=== PATIENT | female | born 1985 | race Caucasian/White ===

== ENCOUNTER 2022-08-26 06:52 | Observation (INO) ==
[2022-08-26 07:01] VITALS: BMI 45.6
--- NOTE | 2022-08-26 07:32 | DR.CP ---
HPI Time Seen Time Seen by Provider: 08/26/22 07:29 PCP Primary Care Physician: JUSTIN SUAREZ HPI Comment HPI Comment: Pt. is a 36 y/o female presenting with c/o recurrent, sharp and pressure type chest pain since last night. There is no radiation, palpitations or diaphoresis. The pain feels better when she vomits but there is no exacerbating factor. Aside from this present discomfort, this pain occurred last week . At its worst, the pain was an 8 out 10, now it is rated as a 4. Complaint Chief Complaint:: PT STATES SHE STARTED HAVING CHEST PAIN AROUND 9PM LAST NIGHT AND HAS GOTTEN BETTER AND WORSE THROUGH THE NIGHT. THIS MORNING PAIN IS 5/10. PT STATES SHE HAS HX OF GERD; PT IS CRYING ON ARRIVAL TO TRIAGE. PT STATES "WHEN IT GETS REALLY BAD I HAVE SHORTNESS OF BREATH". PT STATES SHE FEELS BETTER AFTER SHE THROWS UP, BUT THEN PAIN RETURNS. PT DENIES HEADACHE. PT DESCRIBES PAIN EPIGASTRIC, MIDSTERNAL, "FEELS LIKE I HAVE SOMETHING SITTING ON MY CHEST" Self Treatment fo Chief Complaint: PEPCID, ANTACIDS THIS MORNING NO TYLENOL, MOTRIN COVID-19 Coronavirus risk:travel/contact w/high risk person: No Has patient experienced Coronavirus symptoms: No Reviewed Nurses Notes Review: Yes Source History Provided: Patient Mode of Arrival Mode of Arrival: Ambulatory Timing Onset of Chief Complaint: 08/25/22 Came on: Gradually Pain: Present Now Duration Duration: Intermittent Location Location of Chest Pain: Chest Chest Pain Radiation Location: None Context Onset: At rest Cardiac Risk Factors: Diabetes PE Risk Factors: None History of: None Prehospital Care: None and ASA Quality Quality: Sharp and Pressure like Severity Severity: Moderate Modifying Factors Worsens: Nothing Impoves: Nothing Associated Signs and Symptoms Associated Signs and Symptoms: None PMH PMH Past Medical History: Yes Past Medical History: Anemia, Diabetes and GERD Past Medical History Comment: PCOS Past Surgical History: Yes 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 Past Surgical History Comment: FIBROIDS REMOVED Family History History of Family Medical Conditions: Yes Family Medical History: Hypertension Social History Does any household member use tobacco: No Alcohol Use: None Do you use any recreational Drugs:: No Lives With: Spouse and Family Lives Where: Home Travel Risk Coronavirus risk:travel/contact w/high risk person: No Has patient experienced Coronavirus symptoms: No Infectious screening In the last 2 months have you had wt loss of >10#?: NO Have you had fever, night sweats or hemotysis?: No Have you traveled outside the country in the last 6 months?: No Isolation: Standard ROS Review of Systems Constitutional: No Symptoms Reported Eyes: No Symptoms Reported ENTM: No Symptoms Reported Respiratoy: No Symptoms Reported Cardiovascular: Chest Pain Gastrointestinal/Abdominal: No Symptoms Reported Genitourinary: No Symptoms Reported Neurological: No Symptoms Reported Musculoskeletal: No Symptoms Reported Integumentary: No Symptoms Reported Hematologic/Lymphatic: No Symptoms Reported Endocrine: No Symptoms Reported Psychiatric: No Symptoms Reported All Other Systems: Reviewed and Negative PE Vitals Vitals: Temperature 97.5 F Pulse Rate 74 Respiratory Rate 18 Blood Pressure 143/85 O2 Sat by Pulse Oximetry 100 General Limitations: No Limitations General Appearance: Alert, In No Apparent Distress and Obese Head Head Exam: Normal Inspection, Atraumatic and Normocephalic Eyes Eye exam: Normal Appearance and EOMI ENT ENT Exam: Normal Exam, Normal Oropharynx, Normal External Ear Exam and Mucous Membranes Moist Chest Chest Inspection: Normal Inspection and Symmetric Chest Wall Rise Respiratory Respiratory Exam: Normal Lung Sounds Bilat Cardiovascular Cardiovascular Exam: Regular Rate, Normal Rhythm, Normal Heart Sounds, +S1 and +S2 Pulse: Normal Edema: Normal Abdominal Exam Abdominal Exam: Normal Inspection, Normal Bowel Sounds and Soft Extremities Extremities Exam: Normal Inspection and Full ROM Back Back Exam: Normal Inspection and Full ROM Neurologic Neurological Exam: Alert and Oriented X3 Psychiatric Psychiatric Exam: Normal Affect and Normal Mood Skin Skin Exam: Dry, Intact and Normal Color COURSE Treatment Treatment: Her care was endorsed over to incoming Dr. Wick ROR Labs Reviewed Result Diagrams: 08/27/22 06:05 08/27/22 06:05 Laboratory: WBC 4.7 X10^3/uL (3.6-10.0) 08/26/22 07:44 RBC 4.11 X10^6/uL (3.5-5.4) 08/26/22 07:44 Hgb 12.7 g/dL (12.0-16.0) 08/26/22 07:44 Hct 35.6 % (36.0-47.0) L 08/26/22 07:44 MCV 86.8 fL (80.0-100.0) 08/26/22 07:44 MCH 31.0 pg (27.0-34.0) 08/26/22 07:44 MCHC 35.7 g/dL (33.0-35.0) H 08/26/22 07:44 RDW 12.7 % (11.6-16.5) 08/26/22 07:44 Plt Count 274 X10^3/uL (150.0-450.0) 08/26/22 07:44 MPV 8.3 fL (7.4-11.0) 08/26/22 07:44 Neut % (Auto) 71.5 % (42.0-75.0) 08/26/22 07:44 Lymph % (Auto) 18.5 % (21.0-51.0) L 08/26/22 07:44 Stephens % (Auto) 9.4 % (0.0-13.0) 08/26/22 07:44 Eos % (Auto) 0.1 % (0.9-2.9) L 08/26/22 07:44 Baso % (Auto) 0.5 % (0.2-1.0) 08/26/22 07:44 Neut # (Auto) 3.4 x10^3/uL (2.2-4.8) 08/26/22 07:44 Lymph # (Auto) 0.9 X10^3/uL (1.3-2.9) L 08/26/22 07:44 Stephens # (Auto) 0.4 x10^3/uL (0.3-0.8) 08/26/22 07:44 Eos # (Auto) 0.0 x10^3/uL (0.0-0.2) 08/26/22 07:44 Baso # (Auto) 0.0 X10^3/uL (0.0-0.1) 08/26/22 07:44 Absolute Nucleated RBC 0.0 /100WBC 08/26/22 07:44 PT 14.3 SECONDS (11.8-14.3) 08/26/22 07:44 INR Target Range - 08/26/22 07:44 INR 1.15 (0.8-1.3) 08/26/22 07:44 APTT 27.2 SECONDS (22.9-36.5) 08/26/22 07:44 PTT Comment - 10/24/22 07:44 Sodium 137 mmol/L (136-145) 08/26/22 07:44 Corrected Sodium 137 mmol/L (136-145) 08/26/22 07:44 Potassium 4.0 mmol/L (3.5-5.1) 08/26/22 07:44 Chloride 104 mmol/L (98-107) 08/26/22 07:44 Carbon Dioxide 28.2 mmol/L (21-32) 08/26/22 07:44 BUN 12 mg/dL (7-18) 08/26/22 07:44 Creatinine 0.76 mg/dL (0.55-1.02) 08/26/22 07:44 Est GFR (MDRD) Af Amer > 60 (>60) 08/26/22 07:44 Est GFR (MDRD) Non-Af > 60 (>60) 08/26/22 07:44 Glucose 117 mg/dL (65-99) H 08/26/22 07:44 Calcium 8.5 mg/dL (8.5-10.1) 08/26/22 07:44 Corrected Calcium TNP 08/26/22 07:44 Magnesium 1.6 mg/dL (2.0-2.9) L 08/26/22 07:44 Total Bilirubin 1.10 mg/dL (0.2-1.0) H 08/26/22 07:44 AST 500 Units/L (15-37) H 08/26/22 07:44 ALT 418 Units/L (12-78) H 08/26/22 07:44 Alkaline Phosphatase 84 Units/L (46-116) 08/26/22 07:44 Creatine Kinase 79 Units/L (26-192) 08/26/22 07:44 Troponin I High Sens 4.2 ng/L (4.0-60.0) 08/26/22 07:44 Total Protein 7.2 g/dL (6.4-8.2) 08/26/22 07:44 Albumin 3.7 g/dL (3.4-5.0) 08/26/22 07:44 Globulin 3.5 g/dL (2.5-4.5) 08/26/22 07:44 Albumin/Globulin Ratio 1.1 Ratio (1.1-2.1) 08/26/22 07:44 HCG, Qual Negative <10 mIU/mL 08/26/22 07:44 Specimen Type Clean catch urine 08/26/22 08:30 Urine Color Yellow (YELLOW) 08/26/22 08:30 Urine Appearance Clear (CLEAR) 08/26/22 08:30 Urine pH 6.0 (5.0 - 8.0) 08/26/22 08:30 Ur Specific Delong 1.010 (1.000-1.030) 08/26/22 08:30 Urine Protein 1+ (NEGATIVE) 08/26/22 08:30 Urine Glucose (UA) Negative (NEGATIVE) 08/26/22 08:30 Urine Ketones Negative (NEGATIVE) 08/26/22 08:30 Urine Blood Negative (NEGATIVE) 08/26/22 08:30 Urine Nitrite Negative (NEGATIVE) 08/26/22 08:30 Urine Bilirubin Negative (NEGATIVE) 08/26/22 08:30 Urine Urobilinogen Normal (NORMAL) 08/26/22 08:30 Ur Leukocyte Esterase Negative (NEGATIVE) 08/26/22 08:30 Urine RBC None seen /HPF (0-3) 08/26/22 08:30 Urine WBC None seen /HPF (0-5) 08/26/22 08:30 Ur Squamous Epith Cells Few /HPF (NEGATIVE) 08/26/22 08:30 Other Crystals Few /HPF (NEGATIVE) 08/26/22 08:30 Amorphous Sediment Trace /HPF (NEGATIVE) 08/26/22 08:30 Urine Bacteria Trace /HPF (NEGATIVE) 08/26/22 08:30 Ur Culture Indicated? No/not indicated 08/26/22 08:30 Tissue Pathology To follow 08/26/22 12:25 Opioid Opioid Risk Tool Age ([place] box if 16-45): Yes History of Preadolescent Sexual Abuse: No Total: 1 Total Score Risk Category: Low Risk Copyright: Rodrigue WELCH predicting aberrant behaviors Discharge Plan Diagnosis Discharge Problem: Chest pain Discharge Plan Patient Disposition: 09 ADMITTED INPATIENT Condition: Stable Orders to Discharge Patient Discharge Orders: Discharge (Routine); Ordered 08/27/22 Ordered By: PERLA YODER
[2022-08-26] MEDS ORDERED: PROTONIX TAB 40 MG PO ONE ×2 (07:35→07:42)
[2022-08-26] MEDS ORDERED: PROTONIX INJ 40 MG VIAL IVP ONE (07:43)
[2022-08-26] MEDS ORDERED: PROTONIX INJ 40 MG VIAL ONE (07:43)
[2022-08-26 07:56] LABS: BASOPHILS % (AUTO) 0.5 % (0.2-1.0); EOSINOPHILS % (AUTO) 0.1 % (0.9-2.9); HEMATOCRIT 35.6 % (36.0-47.0); HEMOGLOBIN 12.7 g/dL (12.0-16.0); LYMPHOCYTES # (AUTO) 0.9 X10^3/uL (1.3-2.9); LYMPHOCYTES % (AUTO) 18.5 % (21.0-51.0); MEAN CORPUSCULAR HGB CONC 35.7 g/dL (33.0-35.0); MEAN CORPUSCULAR VOLUME 86.8 fL (80.0-100.0); MEAN PLATELET VOLUME 8.3 fL (7.4-11.0); MONOCYTES # (AUTO) 0.4 x10^3/uL (0.3-0.8); MONOCYTES % (AUTO) 9.4 % (0.0-13.0); NEUTROPHILS # (AUTO) 3.4 x10^3/uL (2.2-4.8); NEUTROPHILS % (AUTO) 71.5 % (42.0-75.0); RED BLOOD COUNT 4.11 X10^6/uL (3.5-5.4); RED CELL DISTRIBUTION WIDTH 12.7 % (11.6-16.5); WHITE BLOOD COUNT 4.7 X10^3/uL (3.6-10.0)
[2022-08-26 08:06] LABS: INR 1.15 (0.8-1.3)
[2022-08-26 08:14] LABS: ALANINE AMINOTRANSFERASE 418 Units/L (12-78); ALBUMIN 3.7 g/dL (3.4-5.0); ALKALINE PHOSPHATASE 84 Units/L (46-116); ASPARTATE AMINO TRANSFERASE 500 Units/L (15-37); BLOOD UREA NITROGEN 12 mg/dL (7-18); CALCIUM 8.5 mg/dL (8.5-10.1); CARBON DIOXIDE 28.2 mmol/L (21-32); CHLORIDE 104 mmol/L (98-107); COR NA(FOR HYPERGLY) 137 mmol/L (136-145); CREATINE KINASE 79 Units/L (26-192); CREATININE 0.76 mg/dL (0.55-1.02); MAGNESIUM 1.6 mg/dL (2.0-2.9); SODIUM 137 mmol/L (136-145); TOTAL PROTEIN 7.2 g/dL (6.4-8.2); eGFR NON BLACK RACES > 60 (>60)
--- NOTE | 2022-08-26 08:37 | RAD ---
HISTORYPT STATES SHE STARTED HAVING CHEST PAIN AROUND 9PM LAST NIGHT AND HAS GOTTEN BETTER AND WORSE THROUGH THE NIGHT. THIS MORNING PAIN IS 5/10. N/VSTUDYCHEST, 1 VIEWCOMPARISONNoneTECHNIQUEAP view of the chestFINDINGSThe cardiac and mediastinal contours are within normal limits. The lungs are clear without focal consolidation or segmental collapse. No pleural effusion or pneumothorax. Soft tissue attenuation limits evaluation.IMPRESSIONNo acute pulmonary process.Electronically signed by: Anson Rosales (Aug 26, 2022 08:34:55)
[2022-08-26 08:39] LABS: BILIRUBIN,URINE NEGATIVE (NEGATIVE); BLOOD/HEMOGLOBIN,URINE NEGATIVE (NEGATIVE); GLUCOSE, URINE NEGATIVE (NEGATIVE); KETONES,URINE NEGATIVE (NEGATIVE); LEUKOCYTE ESTERASE ,URINE NEGATIVE (NEGATIVE); NITRITES,URINE NEGATIVE (NEGATIVE); PROTEIN,URINE 1+ (NEGATIVE); UROBILINOGEN,URINE NORMAL (NORMAL)
[2022-08-26 08:40] LABS: APPEARANCE,URINE CLEAR (CLEAR); COLOR,URINE YELLOW (YELLOW)
[2022-08-26 08:50] LABS: BACTERIA,URINE TRACE /HPF (NEGATIVE); OTHER CRYSTALS,URINE FEW /HPF (NEGATIVE); RBC,URINE NONE SEEN /HPF (0-3); SQUAMOUS EPITHELIAL CELL,UR FEW /HPF (NEGATIVE)
--- NOTE | 2022-08-26 10:04 | US ---
HISTORY: Abdominal pain. Epigastric pain.Study: Right upper quadrant abdominal ultrasoundComparison: None available.Technique: Multiple bermudez scale and color flow Doppler images of the right upper quadrant were obtained.Findings:The liver is heterogeneously echogenic/fatty in appearance. No focal intraparenchymal mass or intrahepatic biliary ductal dilatation can be observed. The gallbladder is distended and there are intraluminal gallbladder stones with associated gallbladder wall thickening. These findings are concerning for early acute cholecystitis and should be evaluated better with nuclear medicine HIDA imaging. The common bile duct is unremarkable measuring 3 mm. [No pericholecystic fluid or gallbladder wall thickening can be observed]. The CBD measures [within normal limits]. The right kidney appears normal in size without focal parenchymal mass or nephrolithiasis. The right kidney measurers 3 mm. No hydronephrosis or perirenal fluid can be observed. The pancreas is largely obscured by overlying bowel gas.IMPRESSION:The liver is heterogeneously echogenic/fatty in appearance. The gallbladder is distended, and there are intraluminal gallbladder stones with associated gallbladder wall thickening. These findings are concerning for early acute cholecystitis and should be evaluated better with nuclear medicine HIDA imaging.Electronically signed by: MAG PRYOR III (Aug 26, 2022 10:02:28)
[2022-08-26] MEDS ORDERED: VERSED ONE (10:46)
[2022-08-26] MEDS ORDERED: FENTANYL VIAL INJ 100 mcg ONE ×2 (10:46→11:56)
[2022-08-26] MEDS ORDERED: DIPRIVAN VIAL 20 ML ONE (10:47)
[2022-08-26] MEDS ORDERED: XYLOCAINE 2 % (PLAIN) ONE ×2 (10:47→11:34)
[2022-08-26] MEDS ORDERED: PEPCID 20 MG VIAL ONE (10:47)
[2022-08-26] MEDS ORDERED: REGLAN INJ 10 MG VIAL ONE (10:47)
[2022-08-26] MEDS ORDERED: TORADOL 30 MG VIAL ONE (10:47)
[2022-08-26] MEDS ORDERED: ZOFRAN INJ 4 MG VIAL ONE (10:47)
[2022-08-26] MEDS ORDERED: BRIDION ONE (10:47)
[2022-08-26] MEDS ORDERED: OFIRMEV IV 1000 MG VIAL 1,000 MG/100 ML VIAL IV ONE (10:47)
[2022-08-26] MEDS ORDERED: ZEMURON 100 MG VIAL ONE (10:47)
[2022-08-26] MEDS ORDERED: LR 1,000 ML IV 1,000 ML IV ONE (10:51)
[2022-08-26] MEDS ORDERED: NS 100 ML IV 100 ML ONE (11:08)
[2022-08-26] MEDS ORDERED: ANCEF VIAL 1 GRAM ONE (11:08)
[2022-08-26] MEDS ORDERED: BACTROBAN TOPICAL OINT ONE (11:10)
[2022-08-26] MEDS ORDERED: NS 1,000 ML IV 1,000 ML ONE ×2 (11:10→11:39)
[2022-08-26 11:16] LABS: SERUM PREGNANCY TEST, QUAL NEGATIVE <10 mIU/mL
[2022-08-26] MEDS ORDERED: BARHEMSYS INJ ONE ×2 (11:25→13:10)
[2022-08-26] MEDS ORDERED: XYLOCAINE JELLY TOP ONE (11:34)
[2022-08-26] MEDS ORDERED: SUPRANE ONE (11:34)
[2022-08-26] MEDS ORDERED: NS 500 ML IV 0 ML IV ONE (11:38)
[2022-08-26] MEDS ORDERED: NORMODYNE INJ 20 MG VIAL ONE (12:07)
[2022-08-26] MEDS ORDERED: PHENERGAN INJ 25 MG IM PRN (12:46)
[2022-08-26] MEDS ORDERED: BENADRYL INJ 50 MG VIAL IVP PRN (12:46)
[2022-08-26] MEDS ORDERED: REGLAN INJ 10 MG VIAL IVP PRN (12:46)
[2022-08-26] MEDS ORDERED: BARHEMSYS INJ IVP PRN (12:46)
[2022-08-26] MEDS ORDERED: ZOFRAN INJ 4 MG VIAL IVP PRN (12:46)
[2022-08-26] MEDS ORDERED: DILAUDID INJ ONE ×2 (12:54→14:05)
[2022-08-26] MEDS: DILAUDID INJ IVP PRN ×4 (12:56→13:18)
[2022-08-26] MEDS ORDERED: ZOFRAN INJ 4 MG VIAL IV PRN (13:03)
[2022-08-26] MEDS ORDERED: DILAUDID INJ IVP PRN (13:03)
[2022-08-26] MEDS ORDERED: D5 1/2 NS 1,000 ML 1,000 ML IV SCH (14:00)
[2022-08-26] MEDS: D5 1/2 NS 1,000 ML 1,000 ML IV SCH ×3 (14:29→23:24)
[2022-08-26] MEDS ORDERED: LEVSIN/MAALOX/LIDOC VISC ONE (14:39)
[2022-08-26] MEDS: LEVSIN/MAALOX/LIDOC VISC PO PRN ×2 (14:43→20:10)
[2022-08-26] MEDS ORDERED: PROTONIX INJ 40 MG VIAL IVP SCH (15:00)
[2022-08-26 15:18] LABS: AMYLASE 44 Units/L (25-115); LIPASE 194 Units/L (73-393)
[2022-08-27] MEDS: D5 1/2 NS 1,000 ML 1,000 ML IV SCH (05:08)
[2022-08-27 06:41] LABS: BASOPHILS % (AUTO) 0.5 % (0.2-1.0); EOSINOPHILS % (AUTO) 0.5 % (0.9-2.9); HEMATOCRIT 37.5 % (36.0-47.0); HEMOGLOBIN 13.3 g/dL (12.0-16.0); LYMPHOCYTES # (AUTO) 1.8 X10^3/uL (1.3-2.9); LYMPHOCYTES % (AUTO) 35.1 % (21.0-51.0); MEAN CORPUSCULAR HEMOGLOBIN 31.4 pg (27.0-34.0); MEAN CORPUSCULAR HGB CONC 35.5 g/dL (33.0-35.0); MEAN CORPUSCULAR VOLUME 88.5 fL (80.0-100.0); MEAN PLATELET VOLUME 8.5 fL (7.4-11.0); MONOCYTES # (AUTO) 0.4 x10^3/uL (0.3-0.8); MONOCYTES % (AUTO) 7.2 % (0.0-13.0); NEUTROPHILS # (AUTO) 2.9 x10^3/uL (2.2-4.8); NEUTROPHILS % (AUTO) 56.7 % (42.0-75.0); RED BLOOD COUNT 4.24 X10^6/uL (3.5-5.4); RED CELL DISTRIBUTION WIDTH 13.3 % (11.6-16.5); WHITE BLOOD COUNT 5.1 X10^3/uL (3.6-10.0)
[2022-08-27 06:43] LABS: BLOOD UREA NITROGEN 6 mg/dL (7-18); CALCIUM 8.3 mg/dL (8.5-10.1); CARBON DIOXIDE 25.7 mmol/L (21-32); CHLORIDE 105 mmol/L (98-107); CREATININE 0.73 mg/dL (0.55-1.02); SODIUM 143 mmol/L (136-145); eGFR NON BLACK RACES > 60 (>60)
--- NOTE | 2022-08-27 08:55 | DR.CONSULT ---
CONSULT Consultation for Day of: Date: 08/26/22 Chief Complaint Chief Complaint: Medical management status post cholecystectomy Allergies Allergies Allergy/AdvReac Type Severity Reaction Status Date / Time No Known Drug Allergies Allergy Verified 08/26/22 07:01 History of Present Illness History of Present Illness: This is a pleasant 36-year-old white female who un derwent cholecystectomy earlier this morning for acute cholelithiasis. After surgery she had episode of chest pain. EKG was done and read cannot rule out anterior [place] cardiac enzymes were also done and were negative. When I saw the patient she her chest pain had resolved but she did report some pain in the epigastrium and under the inferior part of the breastbone. Checked amylase and lipase and both were normal so that effectively ruled out pancreatitis. It was noted that her AST and ALT were both very high. I suspected the patient may have some retained gallstones in the biliary duct's causing her LFTs to go up. I see with Dr. Yin, lead oxide mill tender is consulted and he will be seeing the patient later in the week. 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 Family History Family Medical History: Hypertension Social History Does patient currently use any type of tobacco product: No Have you used tobacco products in the last 12 months: No Type of Tobacco Use: None Does any household member use tobacco: No Alcohol Use: None Medications Home Medications: No Known Drug Allergies Allergy (Verified 08/26/22 07:01) Review of Systems Constitutional: No Symptoms Reported Eyes: No Symptoms Reported ENT: No Symptoms Reported Respiratory: No Symptoms Reported Cardiovascular: Chest Pain Gastrointestinal: Abdominal Pain (abdominal pain in the epigastrium) Genitourinary: No Symptoms Reported Musculoskeletal: No Symptoms Reported Skin: No Symptoms Reported Neurological: No Symptoms Reported Physical Exam Vital Signs: Temperature 98.1 F Pulse Rate [Left Brachial] 75 Pulse Rate 61 Respiratory Rate 18 Blood Pressure [Right Arm] 103/51 Blood Pressure 161/85 O2 Sat by Pulse Oximetry 98 Oriented: Normal, Time, Person and Place Eyes: Normal Ear: Normal Nose: Normal Throat: Normal Respiratory: Clear Throughout Cardiovascular: Normal Auscultation: Bowel Sounds: Normal Palpation: Normal Tenderness: Epigastric Skin: Normal Musculoskeletal: Normal Psychiatric: Anxiety Mood Description: Calm Affect: Normal Speech Pattern: Clear and Appropriate Plan (1) Epigastric pain: Status: Acute Narrative Support Text: Patient reported the only thing that helped her earlier in the day when she was having epigastric pain was Protonix Plan: Protonix IV every 12 hours and GI cocktail. (2) Chest pain: Status: Acute Narrative Support Text: Patient is currently chest pain-free. Plan: I will give the patient some GI cocktail to see if this helps relieves her symptoms. (3) Abnormal LFTs: Status: Acute Plan: Repeat CMP in the morning. Follow-up with gastroenterology's consult
[2022-08-27] MEDS ORDERED: PROTONIX INJ 40 MG VIAL IVP SCH (09:00)
[2022-08-27 11:58] LABS: ALANINE AMINOTRANSFERASE 405 Units/L (12-78); ALBUMIN 3.8 g/dL (3.4-5.0); ALKALINE PHOSPHATASE 89 Units/L (46-116); ASPARTATE AMINO TRANSFERASE 167 Units/L (15-37); TOTAL PROTEIN 7.6 g/dL (6.4-8.2)
[2022-08-27 13:12] VITALS: BP 144/79
== END 2022-08-27 09:20 | disposition home or self-care (01) ==
LOC: ER 06:52 → MED/SURG 06:52
PROVIDERS: ADMIT Surgery; ATTEND Surgery
DX: E11.65 Type 2 diabetes mellitus with hyperglycemia; K80.00 Calculus of gallbladder with acute cholecystitis without obstruction; K21.9 Gastro-esophageal reflux disease without esophagitis; R10.13 Epigastric pain; R94.5 Abnormal results of liver function studies; R07.89 Other chest pain; E66.01 Morbid (severe) obesity due to excess calories